=== PATIENT | female | born 1990 | race African-American/Black ===

== ENCOUNTER 2021-05-30 17:13 | Emergency (ER) | payer MEDICAID ==
[~2021-05-30] VITALS: Ht 170.2 cm; Wt 148.0 kg
[2021-05-30] MEDS ORDERED: DOXY100C5 MT (18:39)
[2021-05-30] MEDS ORDERED: TETANUS, DIPHTHERIA, PERTUSSIS VAC/PF 0.5ML (>7YR OLD) IM ONE (18:45)
[2021-05-30 18:51] VITALS: BP 130/81
== END 2021-05-30 18:53 | disposition home or self-care (01) ==
LOC: ER 17:13
DX: S40.861A Insect bite (nonvenomous) of right upper arm, initial encounter (principal); L08.9 Local infection of the skin and subcutaneous tissue, unspecified; E11.9 Type 2 diabetes mellitus without complications; E66.9 Obesity, unspecified; Z68.43 Body mass index [BMI] 50.0-59.9, adult; W57.XXXA Bitten or stung by nonvenomous insect and other nonvenomous arthropods, initial encounter; Y93.89 Activity, other specified; Y92.018 Other place in single-family (private) house as the place of occurrence of the external cause
CPT/HCPCS: 90471; 90715; 99283